=== PATIENT | male | born 1985 | race Caucasian/White ===

== ENCOUNTER 2019-03-16 06:57 | Day surgery (SDC) | payer OTHER ==
[~2019-03-16 06:57] MED LIST: Lactated Ringers 1,000 ML IV SCH; Lidocaine 1%/Sod Bicarbonate in NS 8.4% 1 ML Syringe IDERM PRN; Sodium Chloride 0.9% 10 ML Syringe FLUSH PRN
[2019-03-16] MEDS ORDERED: Lidocaine 1% 4 ML ONE (07:09)
[2019-03-16] MEDS ORDERED: Propofol 200 MG/20 ML SDV ONE (07:09)
[2019-03-16] MEDS ORDERED: fentaNYL 100 MCG/2 ML SDV ONE (07:13)
--- NOTE | 2019-03-16 07:29 | PCM.PREANE ---
Preanesthetic Assessment - Anesthesia/Transfusion/Family Hx Anesthesia History: Prior Anesthesia Without Reaction Family History of Anesthesia Reaction: No Transfusion History: No Prior Transfusion(s) - Review of Systems General: No Symptoms Pulmonary: No Symptoms Cardiovascular: No Symptoms Gastrointestinal: No Symptoms Neurological: No Symptoms Other: Reports: None - Physical Assessment NPO Status Date: 03/15/19 NPO Status Time: 22:30 ASA Class: 2 Mental Status: Alert & Oriented x3 Airway Class: Mallampati = 1 Dentition: Reports: Normal Dentition Thyro-Mental Finger Breadths: 2 Mouth Opening Finger Breadths: 3 ROM/Head Extension: Full Lungs: Clear to Auscultation, Normal Respiratory Effort - Allergies Allergies/Adverse Reactions: Allergies Allergy/AdvReac Type Severity Reaction Status Date / Time No Known Allergies Allergy Verified 03/15/19 14:27 - Acknowledgements Anesthesia Type Planned: MAC Pt an Appropriate Candidate for the Planned Anesthesia: Yes Alternatives and Risks of Anesthesia Discussed w Pt/Guardian: Yes Pt/Guardian Understands and Agrees with Anesthesia Plan: Yes PreAnesthesia Questionnaire HEENT History: Reports: Allergic Rhinitis, Other (See Below) Other HEENT History: eustachian tube dysfunction Cardiovascular History: Reports: Hypertension (pt states he just dose of Losartan increased to 100mg yesterday) Respiratory History: Reports: None Gastrointestinal History: Reports: GERD, Other (See Below) Other Gastrointestinal History: abdominal bloating, diarrhea, reflux Genitourinary History: Reports: None LOCATOR History: Reports: None Musculoskeletal History: Reports: None Neurological History: Reports: None Psychiatric History: Reports: None Endocrine/Metabolic History: Reports: None Hematologic History: Reports: None Immunologic History: Reports: None Oncologic (Cancer) History: Reports: None Dermatologic History: Reports: None - Past Surgical History Head Surgeries/Procedures: Reports: None HEENT Surgical History: Reports: Tonsillectomy Cardiovascular Surgical History: Reports: None Respiratory Surgical History: Reports: None GI Surgical History: Reports: None Female Surgical History: Reports: None Male Surgical History: Reports: None Endocrine Surgical History: Reports: None Neurological Surgical History: Reports: None Musculoskeletal Surgical History: Reports: Other (See Below) Other Musculoskeletal Surgeries/Procedures:: right foot/ankle surgery Oncologic Surgical History: Reports: None Dermatological Surgical History: Reports: None - SUBSTANCE USE Smoking Status *Q: Never Smoker Tobacco Use Within Last Twelve Months: Snuff/Dip Recreational Drug Use History: No - HOME MEDS Home Medications: Home Meds Cetirizine [ZyrTEC] 10 mg PO DAILY 03/15/19 [History] Fluticasone Propionate [Flonase] 1 dose CANDI DAILY 03/15/19 [History] Losartan [Cozaar] 100 mg PO DAILY 03/15/19 [History] Pantoprazole Sodium [Protonix] 40 mg PO DAILY 03/15/19 [History] - CURRENT (IN HOUSE) MEDS Current Meds: Current Medications Lactated Ringer's (Ringers, Lactated) 1,000 mls @ 125 mls/hr IV ASDIRECTED [facility] Stop: 03/16/19 23:00 Lidocaine/Sodium Bicarbonate (Buffered Lidocaine 1% In Ns 8.4%) 0.25 ml IDERM ONETIME PRN PRN Reason: Prior to IV Start Stop: 03/16/19 18:00 Sodium Chloride (Saline Flush) 10 ml FLUSH ASDIRECTED PRN PRN Reason: Keep Vein Open Stop: 03/16/19 18:00 Discontinued Medications Fentanyl (Sublimaze) Confirm Administered Dose 100 mcg .ROUTE .STK-MED ONE Stop: 03/16/19 07:14 Lidocaine HCl (Xylocaine-Mpf 1%) Confirm Administered Dose 4 mls @ as directed .ROUTE .STK-MED ONE Stop: 03/16/19 07:10 Propofol (Diprivan 20 Ml) Confirm Administered Dose 200 mg .ROUTE .STK-MED ONE Stop: 03/16/19 07:10
[2019-03-16] MEDS ORDERED: Midazolam 1 MG/ML 2 ML SDV ONE (07:57)
--- NOTE | 2019-03-16 08:14 | PCM48HPAN ---
Post Anesthesia Note - EVALUATION WITHIN 48HRS OF ANESTHETIC Vital Signs in Normal Range: Yes Patient Participated in Evaluation: Yes Respiratory Function Stable: Yes Airway Patent: Yes Cardiovascular Function Stable: Yes Hydration Status Stable: Yes Pain Control Satisfactory: Yes Nausea and Vomiting Control Satisfactory: Yes Mental Status Recovered: Yes Vital Signs: Last Vital Signs Temp 36.3 C 03/16/19 07:15 Pulse 69 03/16/19 07:15 Resp 16 03/16/19 07:15 BP 153/91 H 03/16/19 07:15 Pulse Ox 96 03/16/19 07:15
--- NOTE | 2019-03-16 08:14 | PCM.PRGIU ---
Upper GI Endoscopy Procedure Date of Service:: 03/16/19 Informed Consent Obtained?: Yes Indications:: Reports: GERD Sedation:: Reports: IV Depth reached:: Reports: Duodenum Landmarks:: Reports: GE Junction, Gastric Folds, Pyloric Opening, Duodenal Folds - Findings Esophagus:: Reports: Normal Esophagus Comments:: no evidence of esophagitis or Ramires metaplasia. No mucosal or submucosal lesions identified. No abnormal dilatation or stricture. Stomach:: Reports: Normal Stomach Comments:: No evidence of gastritis or peptic ulcer disease. No hiatal hernia appreciated on retroflexion. Hiatal Hernia:: Reports: None Duodenum:: Reports: Normal Duodenum Comments:: Second portion visualized, including ampulla, no significant bilious fluid appreciated, no mucosal abnormality. - Interventions Cauterization:: Reports: None Foreign body removal:: Reports: None Biopsy:: Reports: None Polypectomy:: Reports: None Complications:: Reports: None Cultures:: Reports: None - Follow-up Follow-Up:: Recommend 24 pH probe testing off PPI therapy and esophageal manometry in follow up.
--- NOTE | 2019-03-17 13:58 | PCM.PRNOTE ---
- Free Text/Narrative Note: 03/16/2019 Detailed report The patient underwent monitored anesthesia care sedation and was placed in the left lateral decubitus position. The endoscope was then passed through the mouth into the esophagus without difficulty. The scope was advanced all the way to the second portion of the duodenum. The ampulla was visualized. There were no mucosal abnormalities. The scope was retracted into the stomach, and antrum, pylorus, body and fundus were all inspected with no evidence of gross pathology or hiatal hernia. The scope was pulled back into the esophagus, which was normal in caliber and without mucosal abnormality. The Z line appeared normal. No evidence of Ramires esophagus or reflux esophagitis. The scope was removed and pictures were printed for review with the patient prior to discharge from recovery. Chad Guzman MD General Surgery
== END 2019-03-16 09:00 | disposition home or self-care (01) ==
LOC: JD.SDS 06:57
PROVIDERS: ATTEND Surgery
DX: K21.9 Gastro-esophageal reflux disease without esophagitis (principal); R14.0 Abdominal distension (gaseous); K52.9 Noninfective gastroenteritis and colitis, unspecified; I10 Essential (primary) hypertension; Z79.51 Long term (current) use of inhaled steroids; Z79.899 Other long term (current) drug therapy
CPT/HCPCS: 43235; J2001; J2250; J2704; J3010; J7120; 00731

== ENCOUNTER 2021-01-27 13:48 | Emergency (ER) | payer OTHER ==
[2021-01-27] MEDS ORDERED: Proparacaine 0.5% Ophth Soln 15 ML Bottle EYERT ONE (15:59)
--- NOTE | 2021-01-27 16:01 | EDM.PDOC ---
ED HPI GENERAL MEDICAL PROBLEM - General Chief Complaint: Eye Problems Stated Complaint: FB IN RT EYE Time Seen by Provider: 01/27/21 16:01 Source of Information: Reports: Patient History Limitations: Reports: No Limitations - History of Present Illness INITIAL COMMENTS - FREE TEXT/NARRATIVE: 35-year-old male presents to the ED complaining of foreign body sensation right eye for couple of days. He thought initially a piece of alfalfa Johns had blown into his eye but this morning his could spine a small black spot within his right cornea. He remembers now grinding metal about 2 days ago without safety glasses on. He does wear eyeglasses. Onset: Gradual Onset Date: 01/25/21 Duration: Day(s):, Constant, Getting Worse (Is getting more reddened particular medial aspect) Location: Reports: Face (Body sensation right eye for about 2 days.) Quality: Reports: Ache, Burning, Other Severity: Moderate (To sensitivity) Improves with: Reports: None Worsens with: Reports: Other Context: Reports: Trauma (Believes piece of metal may have gotten into his eye after grinding metal 2 days ago.). 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 Musculoskeletal History: Reports: None Neurological History: Reports: None Psychiatric History: Reports: None Endocrine/Metabolic History: Reports: None Hematologic History: Reports: None Immunologic History: Reports: None Oncologic (Cancer) History: Reports: None Dermatologic History: Reports: None - Infectious Disease History Infectious Disease History: Reports: Chicken Pox - Past Surgical History Head Surgeries/Procedures: Reports: None HEENT Surgical History: Reports: Tonsillectomy Cardiovascular Surgical History: Reports: None Respiratory Surgical History: Reports: None GI Surgical History: Reports: None Male Surgical History: Reports: None Endocrine Surgical History: Reports: None Neurological Surgical History: Reports: None Musculoskeletal Surgical History: Reports: Other (See Below) Other Musculoskeletal Surgeries/Procedures:: right foot/ankle surgery Oncologic Surgical History: Reports: None Dermatological Surgical History: Reports: None Social & Family History - Tobacco Use Tobacco Use Status *Q: Current Every Day Tobacco User Years of Tobacco use: 18 Packs/Tins Daily: 0.1 - Caffeine Use Caffeine Use: Reports: Coffee, Soda - Recreational Drug Use Recreational Drug Use: No - Living Situation & Occupation Living situation: Reports: Occupation: Employed ED ROS GENERAL - Review of Systems Review Of Systems: See Below Constitutional: Denies: Fever, Chills, Malaise, Weakness, Fatigue HEENT: Reports: Eye Pain (Body sensation right eye x2 days), Glasses Respiratory: Reports: No Symptoms Cardiovascular: Reports: No Symptoms Endocrine: Reports: No Symptoms GI/Abdominal: Reports: No Symptoms : Reports: No Symptoms Musculoskeletal: Reports: No Symptoms Skin: Reports: No Symptoms Neurological: Reports: No Symptoms Psychiatric: Reports: No Symptoms Hematologic/Lymphatic: Reports: No Symptoms Immunologic: Reports: No Symptoms ED EXAM GENERAL W FULL EYE - Physical Exam Exam: See Below Exam Limited By: No Limitations General Appearance: Alert, WD/WN, No Apparent Distress, Other (Temperature is 36.7. Heart rate 108 and sinus. Respiratory is 20 with O2 sats of 98% room air. BP elevated initially at 176 118. He did come down to 148/90.) Eye Exam: Right Eye: Foreign Body (Black suspect metallic foreign body at the o'clock position right cornea 3 mm from the limbus), Bilateral Eye: Other (The metallic foreign body was removed with a moistened Q-tip but there was a residual rust ring which had to be burred away.) Eyelids: Right: Lid Everted for Exam (No foreign bodies identified) Conjunctiva & Sclera: Right: Injected (Medial conjunctiva injected without exudate) Cornea Exam: Right: Foreign Body (Tonic foreign body at 3 o'clock position 3 mm from the limbus removed with a moistened Q-tip) Extraocular Movements: Bilateral: Intact Pupillary Size: Bilateral: 6 mm Pupillary Reaction: Bilateral: Brisk Anterior Chamber: Bilateral: Normal Appearance Course - Vital Signs Last Recorded V/S: Last Vital Signs Temp 36.7 C 01/27/21 15:48 Pulse 108 H 01/27/21 15:48 Resp 20 01/27/21 15:48 BP 176/118 H 01/27/21 15:48 Pulse Ox 98 01/27/21 15:48 - Orders/Labs/Meds Meds: Medications Discontinued Medications Generic Name Dose Route Start Last Admin Trade Name Emil PRN Reason Stop Dose Admin Ciprofloxacin 2.5 ml 01/27/21 16:23 Ciprofloxacin 0.3% Ophth Soln 5 Ml Bottle EYERT 01/27/21 16:24 ONETIME ONE Ketorolac Tromethamine 2.5 ml 01/27/21 16:24 Ketorolac 0.5% Ophth Soln 5 Ml Bottle EYERT 01/27/21 16:25 ONETIME ONE Proparacaine HCl 2 ml 01/27/21 15:59 01/27/21 16:08 Proparacaine 0.5% Ophth Soln 15 Ml Bottle EYERT 01/27/21 16:00 1 bottle ONETIME ONE Administration - Radiology Interpretation Free Text/Narrative:: 35-year-old male presents to the ED with foreign body sensation right eye for about 2 days. He thought that a piece of an alfalfa johns may have blown into his eye and caused irritation. This morning when his looked at it she could identify a metallic black spots on his cornea. He remembers he was grinding metal about 2 days ago. Exam confirms a metallic foreign body embedded in the cornea at the 3 o'clock position approximately 3 mm from the limbus. I was able to remove most of it with the aid of a moistened Q-tip. However there was a residual piece of metallic foreign body and a rust ring that had to be burred away with slit-lamp. It was removed completely. Patient will be placed on ketorolac eyedrops 2 drops to the right eye every 6 hours for the next 24 to 36 hours to relieve pain and inflammation. Antibiotic is to be Cipro Floxin drops 2 drops every 8 hours for the next 3 days to prevent secondary infection Departure - Departure Time of Disposition: 16:25 Disposition: Home, Self-Care 01 Preliminary Cause of *Q: Sepsis & Multi System Organ Failure Condition: Fair Clinical Impression: Foreign body in cornea, right eye, initial encounter Corneal abrasion Qualifiers: Encounter type: initial encounter Laterality: right Qualified Code(s): S05.01XA - Injury of conjunctiva and corneal abrasion without foreign body, right eye, initial encounter - Discharge Information *PRESCRIPTION DRUG MONITORING PROGRAM REVIEWED*: Not Applicable *COPY OF PRESCRIPTION DRUG MONITORING REPORT IN PATIENT CAS: Not Applicable Instructions: Eye Foreign Body, [id number] Referrals: Donna Coelho SERVICE PARTS DRIVER [Primary Care Provider] - Forms: ED Department Discharge Additional Instructions: Evaluation in the emergency room today in regards to foreign body sensation right eye for the last couple of days. You do recall grinding metal recently. Examination reveals a small piece of metal embedded in the right cornea at the 3 o'clock position approximately 3 mm from the limbus. Part of this was removed with a moistened Q-tip after topical anesthetic had been applied. On review of the area with slit-lamp there is a residual rust ring which was burred away completely. The cornea will now take about 24 to 30 hours to heal completely. It will be very sensitive to sunlight. Suggest use of ketorolac eyedrops 2 drops to the right eye every 6 hours as needed to relieve pain and inflammation. Antibiotic is to be ciprofloxacin eyedrops 2 drops to the right eye 3 times daily for the next 3 days to prevent secondary infection. The cornea should heal completely over the next 30 to 36 hours. Of note it will be sensitive to light particular sunlight tomorrow. Follow-up required if not completely back to normal in 36 hours time Sepsis Event Note (ED) - Evaluation Sepsis Screening Result: No Definite Risk - Focused Exam Vital Signs: Vital Signs Temp Pulse Resp BP Pulse Ox 01/27/21 15:48 36.7 C 108 H 20 176/118 H 98
[2021-01-27] MEDS ORDERED: Ciprofloxacin 0.3% Ophth Soln 5 ML Bottle EYERT ONE (16:23)
[2021-01-27] MEDS ORDERED: Ketorolac 0.5% Ophth Soln 5 ML Bottle EYERT ONE (16:24)
== END 2021-01-27 16:40 | disposition home or self-care (01) ==
LOC: JD.ED 13:48
DX: T15.01XA Foreign body in cornea, right eye, initial encounter (principal); I10 Essential (primary) hypertension; Z72.0 Tobacco use
CPT/HCPCS: 65222; 99283; A9270

== ENCOUNTER 2021-05-29 07:44 | Day surgery (SDC) | payer OTHER ==
[~2021-05-29 07:44] MED LIST changes: -Sodium Chloride 0.9% 10 ML Syringe FLUSH PRN; +Sodium Chloride 0.9% 10 ML Syringe FLUSH SCH
[2021-05-29] MEDS ORDERED: fentaNYL 100 MCG/2 ML SDV ONE (08:23)
[2021-05-29] MEDS ORDERED: Midazolam 1 MG/ML 2 ML SDV ONE (08:23)
--- NOTE | 2021-05-29 08:23 | PCM.PREANE ---
Preanesthetic Assessment - Procedure Proposed Procedure: diag egd - Anesthesia/Transfusion/Family Hx Anesthesia History: Prior Anesthesia Without Reaction Family History of Anesthesia Reaction: No Transfusion History: No Prior Transfusion(s) - Review of Systems General: No Symptoms Pulmonary: No Symptoms Cardiovascular: No Symptoms Gastrointestinal: No Symptoms Neurological: No Symptoms Other: Reports: None - Physical Assessment NPO Status Date: 05/28/21 NPO Status Time: 22:30 Vital Signs: Last Vital Signs Temp 98.7 F 05/29/21 07:30 Pulse 80 05/29/21 07:30 Resp 16 05/29/21 07:30 BP 132/96 H 05/29/21 07:30 Pulse Ox 97 05/29/21 07:30 Height: 6 ft 4 in Weight: 102.058 kg ASA Class: 2 Mental Status: Alert & Oriented x3 Airway Class: Mallampati = 1 Dentition: Reports: Normal Dentition Thyro-Mental Finger Breadths: 3 Mouth Opening Finger Breadths: 3 ROM/Head Extension: Full Lungs: Clear to Auscultation, Normal Respiratory Effort Cardiovascular: Regular Rate, Regular Rhythm - Allergies Allergies/Adverse Reactions: Allergies Allergy/AdvReac Type Severity Reaction Status Date / Time No Known Allergies Allergy Verified 05/29/21 08:16 - Blood Blood Available: No - Acknowledgements Anesthesia Type Planned: MAC Pt an Appropriate Candidate for the Planned Anesthesia: Yes Alternatives and Risks of Anesthesia Discussed w Pt/Guardian: Yes Pt/Guardian Understands and Agrees with Anesthesia Plan: Yes PreAnesthesia Questionnaire HEENT History: Reports: Allergic Rhinitis, Other (See Below) Other HEENT History: eustachian tube dysfunction Cardiovascular History: Reports: High Cholesterol (denies), Hypertension Respiratory History: Reports: Other (See Below) Other Respiratory History: cough Gastrointestinal History: Reports: GERD, Other (See Below) Other Gastrointestinal History: abdominal bloating, diarrhea, reflux Genitourinary History: Reports: None 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 Musculoskeletal History: Reports: None Neurological History: Reports: None Psychiatric History: Reports: None Endocrine/Metabolic History: Reports: None Hematologic History: Reports: None Immunologic History: Reports: None Oncologic (Cancer) History: Reports: None Dermatologic History: Reports: None - Infectious Disease History Infectious Disease History: Reports: Chicken Pox - Past Surgical History Head Surgeries/Procedures: Reports: None HEENT Surgical History: Reports: Tonsillectomy Cardiovascular Surgical History: Reports: None Respiratory Surgical History: Reports: None GI Surgical History: Reports: None Female Surgical History: Reports: None Male Surgical History: Reports: None Endocrine Surgical History: Reports: None Neurological Surgical History: Reports: None Musculoskeletal Surgical History: Reports: Other (See Below) Other Musculoskeletal Surgeries/Procedures:: right foot/ankle surgery Oncologic Surgical History: Reports: None Dermatological Surgical History: Reports: None - SUBSTANCE USE Tobacco Use Status *Q: Current Some Day Tobacco User (none for 2 weeks) Tobacco Use Within Last Twelve Months: Snuff/Dip Second Hand Smoke Exposure: No Days Per Week of Alcohol Use: 3 Number of Drinks Per Day: 5 Total Drinks Per Week: 15 Recreational Drug Use History: No - HOME MEDS Home Medications: Home Meds Cetirizine HCl [Zyrtec] 10 mg PO DAILY 05/28/21 [History] Famotidine [Pepcid] 40 mg PO DAILY 05/28/21 [History] Valsartan 160 mg PO DAILY 05/28/21 [History] - CURRENT (IN HOUSE) MEDS Current Meds: Current Medications Lactated Ringer's (Ringers, Lactated) 1,000 mls @ 125 mls/hr IV ASDIRECTED [facility] Stop: 05/29/21 23:00 Last Admin: 05/29/21 08:16 Dose: 125 mls/hr Documented by: Lidocaine/Sodium Bicarbonate (Lidocaine 1%/Sod Bicarbonate In Ns 8.4% 1 Ml Syringe) 0.25 ml IDERM ONETIME PRN PRN Reason: Prior to IV Start Stop: 05/29/21 18:00 Sodium Chloride (Sodium Chloride 0.9% 10 Ml Syringe) 10 ml FLUSH 0900,2100 [facility] Stop: 05/29/21 18:00
[2021-05-29] MEDS ORDERED: Lidocaine 1% 4 ML ONE (08:24)
[2021-05-29] MEDS ORDERED: Propofol 200 MG/20 ML SDV ONE ×2 (08:24→08:34)
--- NOTE | 2021-05-29 09:24 | PCM.PRNOTE ---
- Free Text/Narrative Note: Date: 05/29/2021 Procedure: diagnostic esophagogastroduodenoscopy Indication: reflux symptoms, partially responsive to antacid medication, normal looking EGD without biopsies two years ago Endoscopist: Chad Guzman MD Findings: grossly normal findings Detailed Report: The patient was taken to the endoscopy suite and placed in left lateral decubitus position. Timeout was performed, a bite-block was placed and monitored anesthesia care was initiated. The endoscope was inserted into the mouth and advanced to the duodenum with ease. Duodenal mucosa appeared grossly normal. A sample biopsy of mucosa was obtained with cold forceps at the duodenal bulb. The scope was then withdrawn into the stomach. Pylorus and antrum appeared grossly normal. A sample of mucosa was obtained from the antrum using cold forceps. The scope was retroflexed in the gastroesophageal junction observed for over 1 minute. No hiatal hernia was appreciated. Scope was withdrawn to the distal esophagus. The Z-line appeared grossly normal. Several biopsies just proximal to the Z-line were obtained with cold forceps. Air was suctioned from the stomach prior to withdrawal of the scope. The remainder the esophagus appeared normal as the scope was withdrawn. The patient tolerated the procedure well.
--- NOTE | 2021-05-29 09:27 | PCM48HPAN ---
Post Anesthesia Note - EVALUATION WITHIN 48HRS OF ANESTHETIC Vital Signs in Normal Range: Yes Patient Participated in Evaluation: Yes Respiratory Function Stable: Yes Airway Patent: Yes Cardiovascular Function Stable: Yes Hydration Status Stable: Yes Pain Control Satisfactory: Yes Nausea and Vomiting Control Satisfactory: Yes Mental Status Recovered: Yes Vital Signs: Last Vital Signs Temp 37.1 C 05/29/21 07:30 Pulse 80 05/29/21 07:30 Resp 16 05/29/21 07:30 BP 132/96 H 05/29/21 07:30 Pulse Ox 97 05/29/21 07:30
== END 2021-05-29 09:50 | disposition home or self-care (01) ==
LOC: JD.SDS 07:44
PROVIDERS: ATTEND Surgery
DX: K20.0 Eosinophilic esophagitis (principal); K21.9 Gastro-esophageal reflux disease without esophagitis; I10 Essential (primary) hypertension; E78.5 Hyperlipidemia, unspecified; E55.9 Vitamin D deficiency, unspecified; E78.00 Pure hypercholesterolemia, unspecified; F17.210 Nicotine dependence, cigarettes, uncomplicated; Z79.899 Other long term (current) drug therapy; Z98.890 Other specified postprocedural states
CPT/HCPCS: 43239; J2250; J2704; J3010; J7120; 00731

== ENCOUNTER 2021-06-19 06:57 | Observation (INO) | payer OTHER ==
[~2021-06-19 06:57] MED LIST changes: -Sodium Chloride 0.9% 10 ML Syringe FLUSH SCH
[2021-06-19] MEDS ORDERED: Bupivacaine 0.5% 30 ML SDV ONE (07:20)
[2021-06-19] MEDS ORDERED: Rocuronium 50 MG/5 ML Vial ONE ×4 (07:33→11:22)
[2021-06-19] MEDS ORDERED: fentaNYL 100 MCG/2 ML SDV ONE ×2 (07:33→09:04)
[2021-06-19] MEDS ORDERED: Midazolam 1 MG/ML 2 ML SDV ONE (07:33)
[2021-06-19] MEDS ORDERED: Succinylcholine/Sod PF 100 MG/5 ML SYRINGE IV ONE (07:33)
[2021-06-19] MEDS ORDERED: Propofol 200 MG/20 ML SDV ONE (07:33)
[2021-06-19] MEDS ORDERED: ceFAZolin 1 GM Vial ONE (07:37)
[2021-06-19] MEDS ORDERED: Ondansetron 4 MG/2 ML SDV ONE (11:22)
[2021-06-19] MEDS ORDERED: Dexamethasone 4 MG/ML 5 ML MDV ONE (11:22)
[2021-06-19] MEDS ORDERED: oxyCODONE 5 MG Tab PO PRN (11:56)
[2021-06-19] MEDS ORDERED: Ondansetron 4 MG in Sodium Chloride 0.9% 50 ML IV PRN (11:58)
[2021-06-19] MEDS ORDERED: Simethicone 80 MG Tab.Chew PO PRN (11:59)
[2021-06-19] MEDS ORDERED: Promethazine 12.5 MG in Sodium Chloride 0.9% 50 ML IV PRN (11:59)
[2021-06-19] MEDS ORDERED: HYDROmorphone 0.5 MG/0.5 ML Syringe IVPUSH PRN (11:59)
[2021-06-19] MEDS ORDERED: Lactated Ringers 1,000 ML IV SCH (12:00)
[2021-06-19] MEDS ORDERED: Ondansetron 4 MG/2 ML SDV IVPUSH PRN (12:12)
[2021-06-19] MEDS: Sodium Chloride 0.9% 10 ML Syringe FLUSH SCH ×2 (13:50→19:26)
[2021-06-19] MEDS: Acetaminophen 325 MG Tab PO SCH ×2 (13:51→21:27)
[2021-06-19] MEDS: Heparin Sodium 5,000 Units/ML Vial SUBCUT SCH ×2 (13:54→21:27)
[2021-06-20] MEDS: Acetaminophen 325 MG Tab PO SCH ×2 (03:55→12:20)
[2021-06-20] MEDS: Heparin Sodium 5,000 Units/ML Vial SUBCUT SCH ×2 (03:57→12:20)
[2021-06-20] MEDS ORDERED: Cetirizine 10 MG Tab PO SCH (09:00)
== END 2021-06-20 14:48 | disposition home or self-care (01) ==
LOC: JD.MS 06:57 → INTOOBSV 06:57
PROVIDERS: ADMIT Surgery; ATTEND Surgery
DX: K44.9 Diaphragmatic hernia without obstruction or gangrene (principal); D17.5 Benign lipomatous neoplasm of intra-abdominal organs; K21.9 Gastro-esophageal reflux disease without esophagitis; I10 Essential (primary) hypertension; E78.5 Hyperlipidemia, unspecified; E55.9 Vitamin D deficiency, unspecified; Z79.899 Other long term (current) drug therapy; Z87.891 Personal history of nicotine dependence; Z98.890 Other specified postprocedural states
CPT/HCPCS: 36415; 43210; 43281; 80048; 85025; A9270; G0378; J0330; J0690; J1100; J1644; J2250; J2370; J2405; J2704; J3010; J3490; J7120; 00790